=== PATIENT | male | born 1960 | race Caucasian/White ===

== ENCOUNTER 2023-06-18 08:09 | Emergency (ER) | payer MEDICARE, BC ==
[~2023-06-18] VITALS: Ht 182.9 cm; Wt 115.9 kg
[2023-06-18 08:12] VITALS: TEMP 98.2
[2023-06-18 08:26] LABS: BASOPHILS # (AUTO) 0.1 X10'3 (0-0.2); BASOPHILS % (AUTO) 1.3 % (0-1); EOSINOPHILS # (AUTO) 0.6 X10'3 (0-0.9); EOSINOPHILS % (AUTO) 6.7 % (0-6); HEMATOCRIT 46.7 % (42.0-52.0); HEMOGLOBIN 15.8 g/dl (14.0-17.9); LYMPHOCYTES # (AUTO) 2.8 X10'3 (1.1-4.8); LYMPHOCYTES % (AUTO) 32.5 % (21-51); MEAN CORPUSCULAR HEMOGLOBIN 29.1 PG (27.0-31.0); MEAN CORPUSCULAR HGB CONC 33.7 g/dL (33.0-36.5); MEAN CORPUSCULAR VOLUME 86.3 FL (78-98); MEAN PLATELET VOLUME 7.7 FL (7.4-10.4); MONOCYTES # (AUTO) 0.6 X10'3 (0-0.9); MONOCYTES % (AUTO) 7.2 % (2-12); NEUTROPHILS # (AUTO) 4.5 X10'3 (1.8-7.7); NEUTROPHILS % (AUTO) 52.3 % (42-75); PLATELET COUNT 330 X10'3 (140-440); RED BLOOD COUNT 5.41 X10'6 (4.70-6.10); RED CELL DISTRIBUTION WIDTH 14.4 % (11.5-14.5); WHITE BLOOD COUNT 8.7 X10'3 (4.5-11.0)
[2023-06-18 08:49] LABS: ALANINE AMINOTRANSFERASE 61 U/L (12-78); ALBUMIN 3.7 G/DL (3.4-5.0); ALKALINE PHOSPHATASE 157 IU/L (46-116); ANION GAP 6 (8-16); ASPARTATE AMINO TRANSFERASE 36 U/L (10-37); BILIRUBIN,TOTAL 0.5 MG/DL (0.1-1.0); BLOOD UREA NITROGEN 18 MG/DL (7-18); BUN/CREATININE RATIO 20.7 (10.0-20.0); CALCIUM 9.7 MG/DL (8.5-10.1); CHLORIDE 102 MMOL/L (99-107); CREATININE 0.87 MG/DL (0.60-1.10); GLUCOSE 157 MG/DL (70-104); POTASSIUM 3.5 MMOL/L (3.5-5.1); SODIUM 136 MMOL/L (135-145); TOTAL CARBON DIOXIDE 27.9 MMOL/L (24-32); TOTAL PROTEIN 7.5 G/DL (6.4-8.2); eCRCL 93 ML/MIN; eGFR 88 ML/MIN
[2023-06-18 08:57] LABS: PRO BRAIN NATRIURETIC PEPTIDE 344 PG/ML (0-125)
[2023-06-18] MEDS ORDERED: cloNIDine 0.1 mg tablet PO ONE (09:00)
[2023-06-18] MEDS ORDERED: LORazepam 1 MG tablet PO ONE (09:00)
[2023-06-18 10:27] VITALS: BP 174/104; PULSE 64; RESP 18; O2SAT 96
== END 2023-06-18 10:31 | disposition home or self-care (01) ==
LOC: ER 08:09
DX: I16.0 Hypertensive urgency (principal); F41.9 Anxiety disorder, unspecified
CPT/HCPCS: 36415; 71045; 80053; 83880; 84484; 85025; 93005; 99285

== ENCOUNTER 2024-05-04 12:26 | Day surgery (SDC) | payer MEDICARE, BC ==
[2024-04-26 15:18] LABS: BASOPHILS # (AUTO) 0.1 X10'3 (0-0.2); BASOPHILS % (AUTO) 1.4 % (0-1); EOSINOPHILS # (AUTO) 0.4 X10'3 (0-0.9); EOSINOPHILS % (AUTO) 4.1 % (0-6); LYMPHOCYTES # (AUTO) 3.6 X10'3 (1.1-4.8); LYMPHOCYTES % (AUTO) 34.4 % (21-51); MEAN CORPUSCULAR HEMOGLOBIN 28.7 PG (27.0-31.0); MEAN CORPUSCULAR HGB CONC 32.7 g/dL (33.0-36.5); MEAN CORPUSCULAR VOLUME 87.7 FL (78-98); MEAN PLATELET VOLUME 7.8 FL (7.4-10.4); MONOCYTES # (AUTO) 0.7 X10'3 (0-0.9); MONOCYTES % (AUTO) 6.9 % (2-12); NEUTROPHILS # (AUTO) 5.5 X10'3 (1.8-7.7); NEUTROPHILS % (AUTO) 53.2 % (42-75); PRE OP HEMATOCRIT 48.2 % (42.0-52.0); PRE OP HEMOGLOBIN 15.8 g/dL (14.0-17.9); PRE OP PLATELET COUNT 342 X10'3 (140-440); PRE OP WHITE BLOOD COUNT 10.4 10'3 (4.8-10.8); RED CELL DISTRIBUTION WIDTH 14.1 % (11.5-14.5)
[2024-04-26 15:32] LABS: ALBUMIN/GLOBULIN RATIO 0.9 (1.1-1.5); ALKALINE PHOSPHATASE 181 IU/L (46-116); BLOOD UREA NITROGEN 22 MG/DL (7-18); CALCIUM 9.6 MG/DL (8.5-10.1); CHLORIDE 101 MMOL/L (99-107); PRE OP ALT 49 U/L (30-65); PRE OP ANION GAP 9 (8-16); PRE OP AST 24 U/L (10-37); PRE OP BILIRUB, TOTAL 0.6 MG/DL (0.0-1.0); PRE OP GLUCOSE 148 MG/DL (70-104); PRE OP POTASSIUM 3.6 MMOL/L (3.4-5.1); PRE OP SODIUM 139 MMOL/L (135-145); TOTAL CARBON DIOXIDE 28.6 MMOL/L (24-32); TOTAL PROTEIN 8.4 G/DL (6.4-8.2); eGFR 75 ML/MIN
[~2024-05-04] VITALS: Ht 182.9 cm; Wt 124.7 kg
[2024-05-04] VITALS (10 sets, daily range): BP systolic 133–166; BP diastolic 77–95; PULSE 81–86; RESP 14–20; TEMP 99; O2SAT 93–97
[~2024-05-04 12:26] MED LIST: ALBU8HFA INH; ALLO300T11 PO; AMLO10TA PO; ATOR10TA70 PO; DIPH-689 PO; GLUC1TAB75 PO; HYDR25TA5 PO; OLME40TA18 PO; PANT-47 PO; PIOG30TA72 PO
[2024-05-04] MEDS ORDERED: midazolam 1 mg/ML 2ml injection ONE ×2 (12:40→15:10)
[2024-05-04] MEDS ORDERED: neostigmine methylsulfate 1 MG/ML 10ml vial ONE (12:40)
[2024-05-04] MEDS ORDERED: fentaNYL/PF 50MCG/1 ML 2ML syringe ONE ×3 (12:40→16:27)
[2024-05-04] MEDS ORDERED: propofol inj 20 ML IV ONE (12:40)
[2024-05-04] MEDS: clindamycin-Cleocin 900mg/D5W 50 ML IV ONE (12:57)
[2024-05-04] MEDS: ringers solution, lacted 1,000 ML IV SCH (12:58)
[2024-05-04] MEDS: famotidine 20mg tablet PO ONE (12:58)
[2024-05-04] MEDS ORDERED: proCHLORperazine 10 MG/2 ml inj IV PRN (13:20)
[2024-05-04] MEDS ORDERED: ringers solution, lacted 1,000 ML IV SCH (13:20)
[2024-05-04] MEDS ORDERED: morphine 2 MG/ML inj. syringe IV PRN (13:20)
[2024-05-04] MEDS ORDERED: morphine 4 MG/ML inj SYRINge IV PRN (13:20)
[2024-05-04] MEDS ORDERED: ondansetron/PF 4mg/2ml inj IV PRN (13:20)
[2024-05-04] MEDS ORDERED: enalaprilat dihydrate 2.5mg/2ml vial IV PRN (13:20)
[2024-05-04] MEDS ORDERED: labetalol 20mg/4ml (5mg/ml) syringe IV PRN (13:20)
[2024-05-04] MEDS: INDOCYANINE GREEN 25 MG/10 ML VIAL IV ONE (13:22)
[2024-05-04] MEDS ORDERED: rocuronium 10mg/ml inj IV ONE ×2 (13:35→15:50)
[2024-05-04] MEDS ORDERED: acetaminophen 1,000mg/100ml IV 100 ML IV ONE ×2 (14:56→16:58)
[2024-05-04] MEDS ORDERED: ondansetron/PF 4mg/2ml inj ONE ×2 (15:11→17:10)
[2024-05-04] MEDS ORDERED: sevoflurane 250ml liquid IH ONE (15:30)
[2024-05-04] MEDS: BUPIVAcaine/PF 2.5mg/ml (0.25%) 10ml vial ONE (16:33)
[2024-05-04] MEDS: LIDOcaine 1% (10mg/ml)w/preservative inj. 20ml MDV ONE (16:33)
[2024-05-04] MEDS: oxyCODONE/APAP 5-325mg tablet PO PRN (18:50)
== END 2024-05-04 18:53 | disposition home or self-care (01) ==
LOC: PAS 12:26
PROVIDERS: ATTEND Surgery
DX: K80.10 Calculus of gallbladder with chronic cholecystitis without obstruction (principal); K42.9 Umbilical hernia without obstruction or gangrene; I11.9 Hypertensive heart disease without heart failure; E78.5 Hyperlipidemia, unspecified; E66.01 Morbid (severe) obesity due to excess calories; J45.909 Unspecified asthma, uncomplicated; M10.9 Gout, unspecified; Z87.442 Personal history of urinary calculi; Z79.899 Other long term (current) drug therapy; Z98.890 Other specified postprocedural states; Z68.37 Body mass index [BMI] 37.0-37.9, adult; Z88.0 Allergy status to penicillin; Z88.8 Allergy status to other drugs, medicaments and biological substances; Z80.0 Family history of malignant neoplasm of digestive organs; Z82.3 Family history of stroke; Z82.49 Family history of ischemic heart disease and other diseases of the circulatory system; Z82.61 Family history of arthritis
CPT/HCPCS: 36415; 47563; 49593; 80053; 82948; 85025; 93005; A4215; A4618; A7000; J0131; J1100; J2001; J2250; J2405; J2704; J2710; J3010; J3490; J7030; J7120; Z7506; Z7508; Z7512; Z7610